=== PATIENT | female | born 1995 | race Two or more races ===

== ENCOUNTER 2017-01-20 16:32 | Emergency (ER) | payer OTHER, BC ==
[2017-01-20] MEDS ORDERED: NO HOME MEDICATION XX (16:47)
[2017-01-20] MEDS ORDERED: IBUPROFEN600 M1 PO (17:12)
== END 2017-01-20 17:55 ==
LOC: EDMED 16:32
DX: S39.012A Strain of muscle, fascia and tendon of lower back, initial encounter (principal); V49.40XA Driver injured in collision with unspecified motor vehicles in traffic accident, initial encounter; Y92.410 Unspecified street and highway as the place of occurrence of the external cause